=== PATIENT | female | born 1985 | race Caucasian/White ===

== ENCOUNTER 2018-01-06 19:52 | Emergency (ER) | payer OTHER ==
[~2018-01-06] VITALS: Ht 160 cm; Wt 59.0 kg
[2018-01-06] MEDS ORDERED: PRENATABS FA T1 EACH (20:06)
== END 2018-01-06 22:28 | disposition home or self-care (01) ==
LOC: ER 19:52
DX: O20.0 Threatened abortion (principal); Z34.01 Encounter for supervision of normal first pregnancy, first trimester